=== PATIENT | male | born 1930 | race African-American/Black ===

== ENCOUNTER 2020-04-18 19:21 | Emergency (ER) | payer MEDICARE ==
[2020-04-18 19:34] VITALS: TEMP 97.8
--- NOTE | 2020-04-18 19:47 | ED ---
Fall HPI - General Source: patient, EMS, RN notes reviewed Mode of arrival: EMS <Aquiles Bartholomew - Last Filed: 04/18/20 20:54> <Lorena John - Last Filed: 04/19/20 15:59> - General Chief Complaint: Fall Stated Complaint: Fall - History of Present Illness Initial Comments: Patient is an 89-year-old male that process the emergency department after falling down a flight of stairs at his niece's house. He was alert and oriented 3 while sitting up in bed during the exam interview. She denied any pain or discomfort anywhere. His c-collar was in place. His noted that he actually turned into the wrong door thickening of the bathroom and found the staircase and a sliding headfirst down the stairs. She notes that he did lose consciousness for a few seconds. He denied any chest pain shortness breath headache nausea vomiting diarrhea constipation fever fatigue chills weakness numbness tingling (Aquiles Bartholomew) - Related Data Allergies Allergy/AdvReac Type Severity Reaction Status Date / Time No Known Allergies Allergy Verified 04/18/20 19:36 Review of Systems ROS Other: All systems not noted in ROS Statement are negative. <Aquiles Bartholomew - Last Filed: 04/18/20 20:54> ROS Other: All systems not noted in ROS Statement are negative. <Lorena John P - Last Filed: 04/19/20 15:59> ROS Statement: Those systems with pertinent positive or pertinent negative responses have been documented in the HPI. Past Medical History Past Medical History: Diabetes Mellitus, Prostate Disorder Additional Past Medical History / Comment(s): kidney impairment History of Any Multi-Drug Resistant Organisms: Unobtainable Past Surgical History: No Surgical Hx Reported, Unable to Obtain Past Psychological History: Unable to Obtain Smoking Status: Never smoker, Unknown if ever smoked Past Alcohol Use History: None Reported, Unable to Obtain Past Drug Use History: None Reported, Unable to Obtain <Aquiles Bartholomew - Last Filed: 04/18/20 20:54> General Exam Limitations: altered mental status General appearance: alert, in no apparent distress Head exam: Present: atraumatic, normocephalic, normal inspection Eye exam: Present: normal appearance, PERRL, EOMI. Absent: scleral icterus, conjunctival injection, periorbital swelling ENT exam: Present: normal exam, mucous membranes moist Neck exam: Present: normal inspection, other (C-collar in place). Absent: tende rness, meningismus, lymphadenopathy Respiratory exam: Present: normal lung sounds bilaterally. Absent: respiratory distress, wheezes, rales, rhonchi, stridor Cardiovascular Exam: Present: regular rate, normal rhythm, normal heart sounds. Absent: systolic murmur, diastolic murmur, rubs, gallop, clicks GI/Abdominal exam: Present: soft, normal bowel sounds. Absent: distended, tenderness, guarding, rebound, rigid Extremities exam: Present: normal inspection, full ROM, normal capillary refill. Absent: tenderness, pedal edema, joint swelling, calf tenderness Neurological exam: Present: alert, oriented X3, CN II-XII intact Expanded Patient oriented to: Present: person, place, time Speech: Present: fluid speech Cranial nerves: EOM's Intact: Normal, Tongue Deviation: Normal, Nystagmus: Nor mal, Facial Sensation: Normal Cerebellar function: Finger to Nose: Normal Sensory exam: Upper Extremity Light Touch: Normal, Lower Extremity Light Touch: Normal Motor strength exam: RUE: 5, LUE: 5, RLE: 5, LLE: 5 Eye Response: (4) open spontaneously Motor Response: (6) obeys commands Verbal Response: (5) oriented Psychiatric exam: Present: normal affect, normal mood Skin exam: Present: warm, dry, intact, normal color. Absent: rash <Aquiles Bartholomew - Last Filed: 04/18/20 20:54> Course Vital Signs 04/18/20 04/18/20 04/18/20 19:22 20:34 20:47 Temperature 97.8 F Pulse Rate 64 67 88 Respiratory 16 18 Rate Blood Pressure 180/101 135/90 115/81 O2 Sat by Pulse 93 L 92 L Oximetry Medical Decision Making - Lab Data Result diagrams: 04/18/20 20:16 04/18/20 20:16 - Radiology Data Radiology results: image reviewed <Aquiles Bartholomew - Last Filed: 04/18/20 20:54> - Lab Data Result diagrams: 04/18/20 20:16 04/18/20 20:16 <Lorena John - Last Filed: 04/19/20 15:59> - Medical Decision Making 89-year-old male status post fall down several stairs. Labs, CT of the brain and C-spine without contrast ordered. Patient declined the need for any pain medication. Labs unremarkable, CT revealed small subarachnoid hemorrhage. Case discussed with Dr. John, decided patient will be transferred to [facility] (Aquiles Bartholomew) I personally saw and evaluated the patient. Patient was awake alert oriented, able to describe the mechanism of injury. Patient was visiting his niece's house which is not familiar with, he believed he was walking into the bathroom and instead open a door and stepped onto the stairs to the basement. Not es pecially B stairs there he fell and fell down the entire flight of stairs. Patient complains of no significant pain. Head CT shows a small subarachnoid hemorrhage, cervical spine CT is negative for acute injury. Patient has no neck pain. Cervical collar was removed. Patient care was discussed with transferring physician Dr. Gifford who accepts the transfer to [facility] for further trauma and neurosurgical evaluation. (Lorena John) - Lab Data Lab Results 04/18/20 04/18/20 04/18/20 Range/Units 20:16 20:16 20:16 WBC 5.5 (3.8-10.6) k/uL RBC 3.83 L (4.30-5.90) m/uL Hgb 10.6 L (13.0-17.5) gm/dL Hct 33.7 L (39.0-53.0) % MCV 88.0 (80.0-100.0) fL MCH 27.7 (25.0-35.0) pg MCHC 31.5 (31.0-37.0) g/dL RDW 16.1 H (11.5-15.5) % Plt Count 199 (150-450) k/uL MPV 7.4 Neutrophils % 70 % Lymphocytes % 23 % Monocytes % 4 % Eosinophils % 2 % Basophils % 1 % Neutrophils # 3.8 (1.3-7.7) k/uL Lymphocytes # 1.2 (1.0-4.8) k/uL Monocytes # 0.2 (0-1.0) k/uL Eosinophils # 0.1 (0-0.7) k/uL Basophils # 0.0 (0-0.2) k/uL Hypochromasia Slight Anisocytosis Slight PT 10.0 (9.0-12.0) sec INR 0.9 (<1.2) APTT 21.6 L (22.0-30.0) sec Sodium 145 (137-145) mmol/L Potassium 4.6 (3.5-5.1) mmol/L Chloride 109 H (98-107) mmol/L Carbon Dioxide 31 H (22-30) mmol/L Anion Gap 5 mmol/L BUN 23 H (9-20) mg/dL Creatinine 1.71 H (0.66-1.25) mg/dL Est GFR (CKD-EPI)AfAm 40 (>60 ml/min/1.73 sqM) Est GFR (CKD-EPI)NonAf 35 (>60 ml/min/1.73 sqM) Glucose 165 H (74-99) mg/dL Calcium 9.5 (8.4-10.2) mg/dL Total Bilirubin 0.4 (0.2-1.3) mg/dL AST 29 (17-59) U/L ALT 13 (4-49) U/L Alkaline Phosphatase 48 (38-126) U/L Total Protein 6.6 (6.3-8.2) g/dL Albumin 3.5 (3.5-5.0) g/dL - Radiology Data CT of the brain and C-spine:Mild multilevel spondylitic changes or spine. No fracture. Increased density right sylvian fissure suggestive of acute small subarachnoid hemorrhage. This possible second set of 3 mm subarachnoid hemorrhage right posterior frontal. There is evidence of some cerebral atrophy and chronic small vessel ischemia. (Aquiles Bartholomew) Disposition Is patient prescribed a controlled substance at d/c from ED?: No - Out of Hospital Transfer - Req. Specs Out of Hospital Transfer - Requested Specifics: Other Emergency Center ([facility]) <Aquiles Bartholomew - Last Filed: 04/18/20 20:54> Is patient prescribed a controlled substance at d/c from ED?: No <Lorena John - Last Filed: 04/19/20 15:59> Clinical Impression: Fall (on) (from) other stairs and steps, initial encounter, Subarachnoid hemorrhage Disposition: OTHER INSTITUTION NOT DEFINED Condition: Stable Referrals: None,Stated [REFERRING] - 1-2 days
[2020-04-18 20:24] LABS: Anisocytosis Slight; Basophils % (A) 1 %; Eosinophils # (A) 0.1 k/uL (0-0.7); Eosinophils % (A) 2 %; HCT 33.7 % (39.0-53.0); HGB 10.6 gm/dL (13.0-17.5); Hypochromasia Slight; Lymphocytes # (A) 1.2 k/uL (1.0-4.8); Lymphocytes % (A) 23 %; MCH 27.7 pg (25.0-35.0); MCHC 31.5 g/dL (31.0-37.0); Mean Platelet Volume 7.4; Monocytes # (A) 0.2 k/uL (0-1.0); Monocytes % (A) 4 %; Neutrophils # (A) 3.8 k/uL (1.3-7.7); Neutrophils % (A) 70 %; Platelet Count 199 k/uL (150-450); RBC 3.83 m/uL (4.30-5.90); RDW 16.1 % (11.5-15.5); WBC 5.5 k/uL (3.8-10.6)
--- NOTE | 2020-04-18 20:33 | CT ---
EXAMINATION TYPE: CT brain stacie garcia DATE OF EXAM: 04/18/2020 COMPARISON: None HISTORY: Fall. Loss of consciousness. Pain CT DLP: mGycm Automated exposure control for dose reduction was used. There is some cerebral cortical atrophy. There is mild hypodensity in the periventricular white matte r. There is no mass effect nor midline shift. There is 1 cm area of slight increased density in the p osterior right sylvian fissure consistent with small acute subarachnoid hemorrhage. The calvarium is intact. The skull base is intact. Cervical vertebra have normal alignment. Posterior elements are intact. There is degenerative disc s pace narrowing throughout the cervical spine with bridging anterior osteophyte formation. Facet joint s are intact. There is no compression fracture. I see no focal bone destruction. IMPRESSION: Mild multilevel spondylotic changes in the cervical spine. No fracture. Increased density right sylvian fissures suggestive of acute small subarachnoid hemorrhage. This poss ible second site of 3 mm subarachnoid hemorrhage right posterior frontal lobe. There is evidence of s ome cerebral atrophy and chronic small vessel ischemia. This exam was discussed with the Aquiles Bartholomew at 8:30 PM.
[2020-04-18 20:38] LABS: Albumin 3.5 g/dL (3.5-5.0); Calcium 9.5 mg/dL (8.4-10.2); Potassium 4.6 mmol/L (3.5-5.1); Total Bilirubin 0.4 mg/dL (0.2-1.3); Total Protein 6.6 g/dL (6.3-8.2)
[2020-04-18 20:43] VITALS: RESP 18
[2020-04-18 20:44] LABS: INR 0.9 (<1.2)
[2020-04-18 20:48] VITALS: BP 115/81; PULSE 88
[2020-04-18 21:11] LABS: Partial Thromboplastin Time 21.6 sec (22.0-30.0)
== END 2020-04-18 21:30 | disposition other institution (70) ==
LOC: EC 19:21
DX: Z04.1 Encounter for examination and observation following transport accident (principal); E11.9 Type 2 diabetes mellitus without complications; W10.9XXA Fall (on) (from) unspecified stairs and steps, initial encounter
CPT/HCPCS: 36415; 70450; 72125; 80053; 85025; 85610; 85730; 99285